=== PATIENT | female | born 1985 | race Caucasian/White ===

== ENCOUNTER 2016-09-25 15:11 | Emergency (ER) | payer MEDICAID ==
[2016-09-25] MEDS ORDERED: KETOROLAC 30 MG/ML VIAL ONE (17:31)
[2016-09-25] MEDS ORDERED: ONDANSETRON 4 MG VIAL ONE (17:31)
[2016-09-25] MEDS ORDERED: SODIUM CHLORIDE 0.9% 1,000 ML ONE (17:31)
[2016-09-25] MEDS ORDERED: SODIUM CHLORIDE 0.9% 100 ML IV ONE (18:57)
[2016-09-25] MEDS ORDERED: CEFTRIAXONE 1 GM VIAL ONE (18:57)
[2016-09-25] MEDS ORDERED: MORPHINE 4 MG/ML SYR ONE (19:04)
== END 2016-09-25 20:28 | disposition home or self-care (01) ==
LOC: ER 15:11
DX: N30.00 Acute cystitis without hematuria (principal)
CPT/HCPCS: 36415; 74176; 80053; 81001; 83690; 84703; 85025; 87088; 96361; 96365; 96374; 96375